=== PATIENT | female | born 1980 | race Caucasian/White ===

== ENCOUNTER 2020-10-09 22:40 | Emergency (ER) | payer OTHER, MEDICAID, SELFPAY ==
[2020-10-09 22:42] VITALS: BP 151/80; PULSE 105; RESP 18; TEMP 37.1; O2SAT 94; BMI 21.4
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
[2020-10-10 00:07] VITALS: BP 150/98; PULSE 73; RESP 16; TEMP 36.7; O2SAT 97
[2020-10-10] MEDS: Acetaminophen 325 MG TABLET 650 MG PO (00:20)
== END 2020-10-10 00:40 | disposition home or self-care (01) ==
PROVIDERS: Emergency Provider Emergency Medicine; PCP Nurse Practitioner Family
DX: S02.2XXA Fracture of nasal bones, initial encounter for closed fracture (principal); J34.89 Other specified disorders of nose and nasal sinuses; Y04.8XXA Assault by other bodily force, initial encounter; Y93.9 Activity, unspecified; Y92.099 Unspecified place in other non-institutional residence as the place of occurrence of the external cause; Z79.899 Other long term (current) drug therapy
CPT/HCPCS: 70160; 99284